=== PATIENT | female | born 1970 | race Caucasian/White ===

== ENCOUNTER → 2023-06-24 14:19 | Outpatient (REF) | payer BC, SELFPAY | LOC: HWWDC 14:19 | PROVIDERS: ATTENDING PHYSICIAN Nurse Practitioner Adult Health | DX: Z12.31 Encounter for screening mammogram for malignant neoplasm of breast (principal) | CPT/HCPCS: 77063; 77067 ==

== ENCOUNTER → 2023-07-27 07:18 | Outpatient (REF) | payer BC, SELFPAY | LOC: HWRAD 07:18 | PROVIDERS: ATTENDING PHYSICIAN Nurse Practitioner Adult Health | DX: R79.89 Other specified abnormal findings of blood chemistry (principal); Z85.820 Personal history of malignant melanoma of skin | CPT/HCPCS: 76700 ==

== ENCOUNTER → 2023-08-29 17:35 | Outpatient (REF) | payer BC, SELFPAY | LOC: RAD 17:35 | PROVIDERS: ATTENDING PHYSICIAN Nurse Practitioner Adult Health | DX: M54.12 Radiculopathy, cervical region (principal) | CPT/HCPCS: 72050 ==

== ENCOUNTER → 2024-07-25 13:39 | Outpatient (REF) | payer BC, SELFPAY | LOC: HWWDC 13:39 | PROVIDERS: ATTENDING PHYSICIAN Nurse Practitioner Adult Health | DX: Z12.31 Encounter for screening mammogram for malignant neoplasm of breast (principal) | CPT/HCPCS: 77063; 77067 ==